=== PATIENT | female | born 1965 | race Caucasian/White ===

== ENCOUNTER 2016-10-07 12:16 | Emergency (ER) | payer OTHER ==
[~2016-10-07] VITALS: Ht 172.7 cm; Wt 86.2 kg
[2016-10-07 12:17] VITALS: BP 175/97
[2016-10-07] MEDS ORDERED: ZOLO100T PO (12:28)
[2016-10-07] MEDS ORDERED: BENA25TA9 PO (12:28)
[2016-10-07] MEDS ORDERED: LEVO25TA5 PO (12:28)
[2016-10-07] MEDS ORDERED: ALBU17IN2 INH (12:28)
[2016-10-07] MEDS ORDERED: PRED20TA PO (13:22)
[2016-10-07] MEDS ORDERED: ZITHTAB PO (13:22)
== END 2016-10-07 13:34 | disposition home or self-care (01) ==
LOC: M ED 13:20
DX: J44.0 Chronic obstructive pulmonary disease with (acute) lower respiratory infection (principal); Z87.891 Personal history of nicotine dependence; Z79.899 Other long term (current) drug therapy; J30.9 Allergic rhinitis, unspecified; E03.9 Hypothyroidism, unspecified; F32.9 Major depressive disorder, single episode, unspecified

== ENCOUNTER 2018-08-23 15:18 | Emergency (ER) | payer OTHER ==
[~2018-08-23] VITALS: Ht 172.7 cm; Wt 86.4 kg
[~2018-08-23 15:18] MED LIST: ALBU17IN2 INH; BENA25TA10 PO; LEVO25TA5 PO; PRED20TA PO; ZITHTAB PO; ZOLO100T PO
[2018-08-23] MEDS ORDERED: AMLODIPINE (15:46)
[2018-08-23] MEDS ORDERED: [UNRECOGNIZED DRUG - OTHER] (15:46)
[2018-08-23] MEDS ORDERED: FISH1000 PO (15:46)
[2018-08-23] MEDS ORDERED: AMLO5TAB6 PO (15:48)
[2018-08-23] MEDS ORDERED: CHLO125TA PO (15:48)
[2018-08-23] MEDS ORDERED: NS 1,000 ML IV ONE (16:15)
[2018-08-23] MEDS ORDERED: METOCLOPRAMIDE INJ 10MG/2ML VIAL (J2765) IV ONE (16:15)
[2018-08-23] MEDS ORDERED: KETOROLAC 30 MG/ML VIAL (J1885) IV ONE (16:15)
--- NOTE | 2018-08-23 16:43 | REP ---
Chest two views HISTORY: Chest pain Comparison: 07/11/2011 The lungs are clear. The heart is normal in size. The pulmonary vasculature is normal in appearance. The bony structure is intact. IMPRESSION: No acute disease. Electronically Signed by Estuardo Meza MD 08/23/2018 04:35 P
--- NOTE | 2018-08-23 16:47 | REP ---
CT Head without contrast HISTORY: Syncope COMPARISON: None There is no intraparenchymal hemorrhage, acute infarct or midline shift. The ventricular system is normal in appearance. There is no extra cerebral collection. A small slightly hyperdense meningioma 1.3 cm in width is present overlying the anterior right frontal lobe convexity. This abuts the adjacent right frontal lobe cortex. There is no fracture. The visualized sinuses are clear. IMPRESSION: 1. There is no acute intracranial lesion. 2. There is a small 1.3 centimeter meningioma overlying the anterior right frontal lobe convexity . Contrast enhanced CT may be helpful for further evaluation. Electronically Signed by Estuardo Meza MD 08/23/2018 04:39 P
[2018-08-23 17:51] LABS: BASO # 0.1 10^3/uL (0.0-0.2); BASO % 0.7 % (0.0-1.0); EOS # 0.3 10^3/uL (0.0-0.50); EOS % 3.6 % (0.0-3.0); HEMATOCRIT 42.9 % (36.0-47.0); HEMOGLOBIN 14.6 g/dl (12.0-15.5); LYMPH # 2.5 10^3/uL (1.5-4.5); LYMPH % 34.1 % (24.0-44.0); MEAN CORPUSCULAR HEMOGLOBIN 29.8 pg (27.0-33.0); MEAN CORPUSCULAR VOLUME 87.6 fl (80.0-96.0); MONO # 0.5 10^3/uL (0.0-0.8); MONO % 6.8 % (0.0-5.0); NEUTROPHILS # 4.1 10^3/uL (1.8-7.7); NEUTROPHILS % 54.5 % (36.0-66.0); PLATELET COUNT, AUTOMATED 243 10^3/uL (150-450); WHITE BLOOD COUNT 7.5 10^3/uL (4.0-10.0)
[2018-08-23 18:35] LABS: ALBUMIN 3.9 GM/DL (3.2-5.2); ALT/SGPT 26 U/L (12-78); BILIRUBIN,DIRECT < 0.1 MG/DL (0.0-0.2); BILIRUBIN,TOTAL 0.6 MG/DL (0.2-1.0); BLOOD UREA NITROGEN 13 MG/DL (7-18); C REACTIVE PROTEIN QUANTITATIV < 0.30 MG/DL (0.00-0.30); CALCIUM LEVEL 9.1 MG/DL (8.5-10.1); CARBON DIOXIDE LEVEL 27 MEQ/L (21-32); CHLORIDE LEVEL 102 MEQ/L (98-107); CK-MB VALUE MASS < 1.0 NG/ML (<3.6); CPK CREATINE PHOSPHOKINASE 127 U/L (26-192); CREATININE FOR GFR 0.69 MG/DL (0.55-1.30); GLOMERULAR FILTRATION RATE > 60.0 (>51); GLUCOSE, FASTING 89 MG/DL (70-100); LIPASE 103 U/L (73-393); MB/CK RELATIVE INDEX 0.79 (< OR =4); NT-PRO BNP 33 PG/ML (<125); SODIUM LEVEL 137 MEQ/L (136-145); TROPONIN I < 0.02 NG/ML (< 0.10)
[2018-08-23 19:01] LABS: ERYTHROCYTE SEDIMENTATION RATE 18 mm/hr (0-30)
[2018-08-23 19:07] LABS: INR 1.01; PROTHROMBIN TIME 13.4 SECONDS (12.1-14.4)
[2018-08-23 19:08] LABS: PARTIAL THROMBOPLASTIN TIME 28.6 SECONDS (25.4-37.6)
[2018-08-23 19:10] LABS: D-DIMER QUANT 723.84 ng/ml (<500)
[2018-08-23] MEDS ORDERED: ISOVUE-370 76% 100ML VIAL (Q9967) As Ordered ONE (20:04)
--- NOTE | 2018-08-23 21:07 | REPVR ---
EXAM: CT Angiography Chest With Contrast EXAM DATE/TIME: 08/23/2018 8:13 PM CLINICAL HISTORY: 52 years old, female; Pain; Chest pain; Additional info: Sob/chest pain TECHNIQUE: Axial computed tomographic angiography images of the chest with intravenous contrast using CT angiography protocol. All CT scans at this facility use at least one of these dose optimization techniques: automated exposure control; mA and/or kV adjustment per patient size (includes targeted exams where dose is matched to clinical indication); or iterative reconstruction. Coronal and sagittal reformatted images were created and reviewed. MIP reconstructed images were created and reviewed. CONTRAST: Contrast Material: 75 ml of ISOVUE 370; Contrast Route: IV COMPARISON: CR Chest, 2 view PA, Lat 08/23/2018 4:20 PM FINDINGS: Pulmonary arteries: There is opacification of the pulmonary arteries with no evidence of pulmonary embolus. Aorta: There is opacification of the aorta which appears intact. Lungs: The lungs appear clear. Pleural space: There is no evidence of pleural effusion. There is no evidence of pneumothorax. Heart: The heart is top normal in size. Lymph nodes: Unremarkable. No enlarged lymph nodes. Bones/joints: Unremarkable. No acute fracture. Soft tissues: Unremarkable. IMPRESSION: No evidence of pulmonary embolus. Electronically signed by: Vickey Garsia On 08/23/2018 21:06:49 PM
[2018-08-23] MEDS ORDERED: LISI10TA4 PO (22:02)
[2018-08-23 22:09] VITALS: BP 136/78
--- NOTE | 2018-08-24 08:00 | ECGEPIP ---
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
--- NOTE | 2018-08-28 20:48 | ED PDOC ---
Post-Departure Follow-Up dr baires faxed formal report of ct head for fu Claudy Luu MD Aug 28, 2018 20:48
== END 2018-08-23 22:22 | disposition home or self-care (01) ==
LOC: M ED 15:18
DX: I10 Essential (primary) hypertension (principal); D32.0 Benign neoplasm of cerebral meninges; R06.02 Shortness of breath; J44.9 Chronic obstructive pulmonary disease, unspecified; E03.9 Hypothyroidism, unspecified; F33.9 Major depressive disorder, recurrent, unspecified; Z78.0 Asymptomatic menopausal state; Z79.899 Other long term (current) drug therapy; Z79.890 Hormone replacement therapy
CPT/HCPCS: 36415; 70450; 71046; 71275; 80048; 80076; 81001; 82550; 82553; 83690; 83735; 83880; 84439; 84443; 84484; 85025; 85379; 85610; 85652; 85730; 86140; 87086; 93005; 96374; 96375; 99284; J1885; J2765; Q9967

== ENCOUNTER → 2019-02-22 | Outpatient (CLI) | payer OTHER ==
[~2019-02-22] MED LIST changes: +AMLO5TAB6 PO; +AMLODIPINE; +CHLO125TA PO; +FISH1000 PO; +LISI10TA4 PO; +PROHANCE 279.3MG/ML 15ML VIAL (A9576) As Ordered ONE; +PROHANCE 279.3MG/ML 5ML VIAL (A9576) As Ordered ONE; +[UNRECOGNIZED DRUG - OTHER]
--- NOTE | 2019-02-22 16:52 | REPVR ---
EXAM: MR Head Without and With Contrast EXAM DATE/TIME: 02/22/2019 4:14 PM CLINICAL HISTORY: 53 years old, female; Condition or disease; Prior surgery; Surgery date: 6+ months; Surgery type: Prior tumor that was resected over 2 years prior. Annual f/u; Additional info: D32.9-benign neoplasm of meninges, unspecified TECHNIQUE: Imaging protocol: MR of the head without and with intravenous contrast. Contrast material: PROHANCE; Contrast volume: 16 ml; Contrast route: 22G ANGIO; COMPARISON: CT Head without contrast 08/23/2018 4:14 PM FINDINGS: The patient is status post resection of right frontal convexity meningioma. There is an approximate 2 cm diameter right frontal convexity craniotomy defect. Mild dural enhancement at the craniotomy site is likely postoperative. No focal mass or mass effect is present. No other abnormal dural enhancement is identified. No abnormal intra-axial or extra-axial fluid collections are present. The CSF spaces and brain parenchyma signal is normal. The brainstem, other midline structures and craniocervical junction are unremarkable. There are normal signal flow void within the internal carotid and basilar arteries. The paranasal sinuses and mastoid air cells are unremarkable. The orbits have normal appearances. IMPRESSION: 1. Status post resection of right frontal convexity meningioma. 2. Mild dural enhancement at the craniotomy site is likely postoperative. No recurrent mass is identified. Continued imaging surveillance is recommended. Electronically signed by: Carlin Meyer On 02/22/2019 16:52:05 PM
== END ==
LOC: M RAD 14:41
PROVIDERS: ATTEND Neurological Surgery
DX: D32.9 Benign neoplasm of meninges, unspecified (principal); Z86.011 Personal history of benign neoplasm of the brain
CPT/HCPCS: 70553; A9576

== ENCOUNTER → 2019-09-04 | Outpatient (CLI) | payer OTHER ==
[~2019-09-04] MED LIST changes: -PROHANCE 279.3MG/ML 15ML VIAL (A9576) As Ordered ONE; -PROHANCE 279.3MG/ML 5ML VIAL (A9576) As Ordered ONE
--- NOTE | 2019-09-04 14:57 | REPMRS ---
Patient History The patient states she has not had a clinical breast exam in over a year. Patient had first child at age 34. Digital Woman Screen Mammo: September 04, 2019 - Exam #: [id number] Bilateral CC and MLO view(s) were taken. Technologist: Bita Arenas, Technologist Prior study comparison: September 10, 2018, bilateral digital woman screen mammo, performed at [facility]. August 18, 2017, bilateral digital woman screen mammo, performed at [facility]. FINDINGS: There are scattered fibroglandular densities. There has been no change in the appearance of the mammogram from the prior studies. There is a mild amount of scattered fibroglandular density which is fairly symmetric. There is no interval development of dominant mass, architectural distortion, or grouped microcalcification suggestive of malignancy. 3-D tomosynthesis shows no additional findings. Assessment: BI-RADS/ACR category 1 mammogram. Negative Mammogram. Recommendation Routine screening mammogram of both breasts in 1 year (for women over age 40). This patient's Lifetime Breast Cancer Risk is estimated at 10.5 %. This mammogram was interpreted with the aid of an FDA-approved computer-aided dectection system. Electronically Signed By: Varghese Mills MD 09/04/19 [id number]
== END ==
LOC: M WHC 10:58
PROVIDERS: ATTEND Family Medicine
DX: Z12.31 Encounter for screening mammogram for malignant neoplasm of breast (principal)

== ENCOUNTER → 2020-09-26 | Outpatient (CLI) | payer OTHER ==
[~2020-09-26] MED LIST changes: +AMLO1TAB24 PO; -AMLO5TAB6 PO; +LISI10TA22 PO; -LISI10TA4 PO
--- NOTE | 2020-09-26 16:39 | REPMRS ---
Patient History The patient states she has not had a clinical breast exam in over a year. Patient had first child at age 34. No Hormone Replacement Therapy Digital Woman Screen Mammo: September 26, 2020 - Exam #: [id number] Bilateral CC and MLO view(s) were taken. Technologist: Melissa Spencer, Technologist Prior study comparison: September 04, 2019, bilateral digital woman screen mammo performed at [facility]. September 10, 2018, bilateral digital woman screen mammo, performed at [facility]. August 18, 2017, bilateral digital woman screen mammo, performed at [facility]. FINDINGS: There are scattered fibroglandular densities. The Volpara volumetric breast density category is:B. There has been no change in the appearance of the mammogram from the prior studies. There is a mild amount of scattered fibroglandular density which is fairly symmetric. There is no interval development of dominant mass, architectural distortion, or grouped microcalcification suggestive of malignancy. 3-D tomosynthesis shows no additional findings. Assessment: BI-RADS/ACR category 1 mammogram. Negative Mammogram. Recommendation Routine screening mammogram of both breasts in 1 year (for women over age 40). This patient's [facility] Lifetime Breast Cancer Risk is estimated at 10.3 %. This mammogram was interpreted with the aid of an FDA-approved computer-aided dectection system. Electronically Signed By: Varghese Mills MD 09/26/20 [id number]
== END ==
LOC: M WHC 15:24
PROVIDERS: ATTEND Physician Assistant Medical
DX: Z12.31 Encounter for screening mammogram for malignant neoplasm of breast (principal)

== ENCOUNTER 2020-10-11 15:34 | Inpatient (IN) | payer OTHER ==
[~2020-10-11] VITALS: Ht 172.7 cm; Wt 75.8 kg
[2020-10-11] MEDS ORDERED: ASPIRIN 81 MG CHEW TABLET PO ONE (16:00)
[2020-10-11] MEDS: METOPROLOL 5 MG/5 ML VIAL IV SCH ×3 (16:15→16:33)
--- NOTE | 2020-10-11 16:15 | REP ---
INDICATION: CHEST PAIN. COMPARISON: 08/23/2018. TECHNIQUE: SINGLE PORTABLE AP VIEW OF THE CHEST WAS PERFORMED. FINDINGS: THERE IS NO ACUTE INFILTRATE OR PULMONARY EDEMA. LUNGS ARE CLEAR. HEART IS NOT SIGNIFICANTLY ENLARGED. MEDIASTINAL SILHOUETTE IS UNREMARKABLE. THE VISUALIZED OSSEOUS STRUCTURES ARE INTACT. IMPRESSION: NO ACUTE PULMONARY DISEASE. <Electronically signed by Constantin Turner > 10/11/20 [id number]
[2020-10-11 16:22] LABS: BASO # 0.1 10^3/uL (0.0-0.2); BASO % 0.5 % (0.0-1.0); EOS # 0.3 10^3/uL (0.0-0.5); EOS % 2.9 % (0.0-3.0); HEMATOCRIT 41.3 % (36.0-47.0); HEMOGLOBIN 14.2 g/dl (12.0-15.5); LYMPH # 2.4 10^3/uL (1.5-5.0); LYMPH % 26.1 % (24.0-44.0); MEAN CORPUSCULAR HEMOGLOBIN 30.2 pg (27.0-33.0); MEAN CORPUSCULAR HGB CONC 34.4 g/dl (32.0-36.5); MEAN CORPUSCULAR VOLUME 87.9 fl (80.0-96.0); MONO # 0.6 10^3/uL (0.0-0.8); MONO % 6.3 % (2.0-8.0); NEUTROPHILS # 5.9 10^3/uL (1.5-8.5); NEUTROPHILS % 64.1 % (36.0-66.0); PLATELET COUNT, AUTOMATED 234 10^3/uL (150-450); WHITE BLOOD COUNT 9.3 10^3/uL (4.0-10.0)
[2020-10-11 16:32] LABS: INR 0.91; PROTHROMBIN TIME 12.5 SECONDS (12.5-14.3)
[2020-10-11 16:58] LABS: ALBUMIN 4.2 GM/DL (3.2-5.2); ALT/SGPT 72 U/L (12-78); BILIRUBIN,DIRECT < 0.1 MG/DL (0.0-0.2); BILIRUBIN,TOTAL 0.4 MG/DL (0.2-1.0); BLOOD UREA NITROGEN 13 MG/DL (7-18); CALCIUM LEVEL 9.4 MG/DL (8.5-10.1); CARBON DIOXIDE LEVEL 30 MEQ/L (21-32); CHLORIDE LEVEL 107 MEQ/L (98-107); CK-MB VALUE MASS 3.7 NG/ML (<3.6); CPK CREATINE PHOSPHOKINASE 112 U/L (26-192); CREATININE FOR GFR 0.78 MG/DL (0.55-1.30); GLOMERULAR FILTRATION RATE > 60.0 (>51); GLUCOSE, FASTING 141 MG/DL (70-100); LIPASE 170 U/L (73-393); MAGNESIUM LEVEL 2.1 MG/DL (1.8-2.4); PHOSPHORUS LEVEL 2.4 MG/DL (2.5-4.9); POTASSIUM SERUM 3.2 MEQ/L (3.5-5.1); SODIUM LEVEL 141 MEQ/L (136-145); TOTAL PROTEIN 7.6 GM/DL (6.4-8.2); TROPONIN I < 0.02 NG/ML (< 0.10)
[2020-10-11] MEDS ORDERED: POTASSIUM CHLORIDE 10 MEQ SR TABLET PO ONE (17:10)
[2020-10-11] MEDS ORDERED: AMLO1TAB25 PO (17:24)
[2020-10-11] MEDS ORDERED: LISI10TA15 PO (17:24)
[2020-10-11] MEDS ORDERED: SYNT75TA PO (17:24)
[2020-10-11] MEDS ORDERED: BUSP10TA PO (17:24)
[2020-10-11] MEDS ORDERED: PROAAER10 INH (17:24)
[2020-10-11] MEDS ORDERED: ALBUTEROL 90 MCG/ACT 8GM HFA INHALER INH PRN (18:00)
--- NOTE | 2020-10-11 18:50 | HPEPDOC ---
General Date of Admission Oct 11, 2020 at 15:35 Date of Service: Oct 11, 2020 Chief Complaint The patient is a 55-year-old female admitted with a reason for visit of Atrial Fibrillation W Rvr Chest Pain. Source: Patient History of Present Illness Mrs. Mcqueen is a 55 year old female with hypertension, family history of early MD in parent, and history of meningioma s/p resection in 2019 who presents with chest discomfort and palpitations. Today, she was working in the garden and had came in at 12:15PM to eat and rest. After finishing eating, around 1:30PM, she developed substernal dull chest pain lasting about 30mins. It was 6/10 and nothing made it better or worsen. Denies any worsening with activity or breathing. She had some associated dyspnea, but denies nausea. No radiation, but had a strange sensation down left arm. Her father had his first MD when he was 47 yo. Patient called EMS to bring to the hospital. In the ED, she was given full dose aspirin. EKG demonstrated atrial fibrillation with RVR which responded to Lopressor 5mg IV x2. Initial troponin was negative. Work up only significant for a potassium of 3.2. I discussed anticoagulation with patient and she was agreeable. I touched base with Neurology, Dr. Monk about anticoagulation with history of brain surgery and meningioma. As long as there is no bleeding, it is okay. Patient denies history of brain bleed. Patient will be place in observation for new onset atrial fibrillation with RVR and chest pain r/o ACS Home Medications Scheduled Amlodipine Besylate (Amlodipine Besylate) 10 Mg Tablet, 5 MG PO DAILY, (Reported) Buspirone HCl (Buspirone HCl) 10 Mg Tablet, 10 MG PO BID, (Reported) Levothyroxine Sodium (Synthroid) 75 Mcg Tablet, 75 MCG PO DAILY, (Reported) Lisinopril/Hydrochlorothiazide (Lisinopril-Hctz 10-12.5 mg Tab) 1 Each Tablet, 1 TAB PO DAILY, (Reported) [place]-3 Fatty Acids/Fish Oil (Fish Oil 1,000 mg Capsule) 1,000 Mg Cap, 1 CAP PO BID, (Reported) Sertraline Hcl (Zoloft) 100 Mg Tab, 200 MG PO DAILY, (Reported) Scheduled PRN Albuterol Sulfate (Proair Hfa) 8.5 Gm Hfa.aer.ad, 2 PUFF INH Q4H PRN for SOB/WHEEZING, (Reported) Allergies Coded Allergies: No Known Drug Allergies (Unverified Allergy, Unknown, 10/11/20) Past Medical History Medical History 1. Hypertension 2. Asthma 3. Hypothyroidism Surgical History 1. Brain surgery for removal of meningioma Family History Father: History of early MD at the age of 47 yo Mother: Healthy per patient. No known medical history and not on any medications Social History * Smoker: former Smoker (quit in 2004, < 20 years on and off) Alcohol: occationally (2 to 3 times a week) Drugs: denies A-FIB/CHADSVASC A-FIB History Current/History of A-Fib/PAF?: Yes Current PO Anticoag Therapy: Yes Review of Systems Constitutional: Denies: Chills, Fever Eyes: Reports: Vision change (Gradual worsening of vision) ENT: Denies: Sore Throat Skin: Denies: Rash Pulmonary: Reports: Dyspnea; Denies: Cough Cardiovascular: Reports: Chest Pain, Palpitations Gastrointestinal: Denies: Nausea, Abdominal Pain Genitourinary: Denies: Dysuria Hematologic: Reports: Bruising Neurological: Reports: Other Symptoms (Strange sensation down left arm) Psych: Reports: Anxiety Physical Examination General Exam: Positive: Alert, Cooperative Eye Exam: Positive: EOMI; Negative: Sclera icteric ENT Exam: Positive: Atraumatic Neck Exam: Positive: Supple Chest Exam: Positive: Clear to auscultation; Negative: Rales, Rhonchi, Wheezing Heart Exam: Positive: Tachycardic, Irregular Rhythm Telemetry: Positive: Atrial fibrillation Abdomen Exam: Positive: Normal bowel sounds, Soft; Negative: Tenderness Extremity Exam: Negative: Edema Neuro Exam: Positive: Normal Speech, Cranial Nerves 3-12 NL Psych Exam: Positive: Mental status NL, Anxiety Vital Signs Vital Signs Date Time Temp Pulse Resp B/P (MAP) Pulse Ox O2 Delivery O2 Flow Rate FiO2 10/11/20 16:50 84 16 144/74 (97) 98 Room Air 10/11/20 15:43 97.2 Laboratory Data Labs 24H Laboratory Tests 2 10/11/20 16:02: Immature Granulocyte % (Auto) 0.1, Neutrophils (%) (Auto) 64.1, Lymphocytes (%) (Auto) 26.1, Monocytes (%) (Auto) 6.3, Eosinophils (%) (Auto) 2.9, Basophils (%) (Auto) 0.5, Neutrophils # (Auto) 5.9, Lymphocytes # (Auto) 2.4, Monocytes # (Auto) 0.6, Eosinophils # (Auto) 0.3, Basophils # (Auto) 0.1, Nucleated Red Blood Cells % (auto) 0.0, Prothrombin Time 12.5, Prothromb Time International Ratio 0.91, Activated Partial Thromboplast Time 26.0, Anion Gap 4L, Glomerular Filtration Rate > 60.0, Calcium Level 9.4, Phosphorus Level 2.4L, Magnesium Level 2.1, Total Bilirubin 0.4, Direct Bilirubin < 0.1, Aspartate Amino Transf (AST/SGOT) 43H, Alanine Aminotransferase (ALT/SGPT) 72, Alkaline Phosphatase 122H, Total Creatine Kinase 112, Creatine Kinase MB 3.7H, Creatine Kinase MB Relative Index 3.30, Troponin I < 0.02, Total Protein 7.6, Albumin 4.2, Albumin/Globulin Ratio 1.2, Lipase 170, Thyroid Stimulating Hormone (TSH) 3.000, Free Thyroxine 1.10 CBC/BMP Laboratory Tests 10/11/20 16:02 Assessment/Plan Mrs. Mcqueen is a 55 year old female with hypertension, family history of early MD in parent, and history of meningioma s/p resection in 2019 who presents with chest discomfort and palpitations. Patient will be monitored overnight on tele and 2nd troponin will be ordered. Patient will be started on Lopressor and apixaban for her new onset atrial fibrillation with RVR. She will need an ec hocardiogram before discharge Plan / VTE VTE Prophylaxis Ordered?: Yes Plan Plan 1. Chest pain r/o ACS -Risk factors include hypertension, smoking, and early family history of CAD -Received full dose aspirin in ED -No ST changes on EKG -Monitor on telemetry and obtain 2nd troponin 2. New onset atrial fibrillation with RVR -Responded to Lopressor 5mg IV x2 -Start Lopressor 25mg BID -Start apixaban -Monitor electrolytes and telemetry -Echocardiogram ordered 3. Hypertension -Continue HCTZ, Lisinopril, amlodipine -Monitor BP as starting new medication (Lopressor) 4. Anxiety -Continue sertraline and Buspirone 5. Hypothyroidism -Continue Levothyroxine 6. DVT ppx -Apixaban ASAD RHOADES DO Oct 11, 2020 18:50
[2020-10-11 18:58] LABS: RSV AMPLIFICATION NEGATIVE (NEGATIVE)
[2020-10-11] MEDS ORDERED: MORPHINE 2 MG/ML 1ML VIAL (J2270) IV ONE (19:25)
[2020-10-11 20:00] VITALS: BP 126/83
[2020-10-11] MEDS: METOPROLOL TART 25 MG TABLET PO SCH (21:00)
[2020-10-11] MEDS: APIXABAN 5 MG TAB (ELIQUIS) PO SCH (22:42)
[2020-10-11] MEDS: busPIRone 10 MG TAB PO SCH (22:43)
[2020-10-12] VITALS: BP 96/64
[2020-10-12 04:00] VITALS: BP 94/53
[2020-10-12] MEDS: LEVOTHYROXINE 75MCG TABLET (0.075MG) PO SCH (05:29)
[2020-10-12 06:38] LABS: HEMATOCRIT 39.2 % (36.0-47.0); MEAN CORPUSCULAR HEMOGLOBIN 29.3 pg (27.0-33.0); MEAN CORPUSCULAR HGB CONC 33.2 g/dl (32.0-36.5); MEAN CORPUSCULAR VOLUME 88.3 fl (80.0-96.0); PLATELET COUNT, AUTOMATED 230 10^3/uL (150-450); RED BLOOD COUNT 4.44 10^6/uL (4.00-5.40); WHITE BLOOD COUNT 7.1 10^3/uL (4.0-10.0)
[2020-10-12 07:00] LABS: BLOOD UREA NITROGEN 10 MG/DL (7-18); CALCIUM LEVEL 8.8 MG/DL (8.5-10.1); CARBON DIOXIDE LEVEL 28 MEQ/L (21-32); CHLORIDE LEVEL 105 MEQ/L (98-107); CHOLESTEROL LEVEL 242 MG/DL (<200); CHOLESTEROL RISK RATIO 4.245 (<5); CREATININE FOR GFR 0.74 MG/DL (0.55-1.30); GLOMERULAR FILTRATION RATE > 60.0 (>51); GLUCOSE, FASTING 100 MG/DL (70-100); HDL CHOLESTEROL 57 MG/DL (>40); LDL CHOLESTEROL 161 MG/DL (<100); NON-HDL-C 185 MG/DL; POTASSIUM SERUM 3.6 MEQ/L (3.5-5.1); SODIUM LEVEL 137 MEQ/L (136-145); TRIGLYCERIDES LEVEL 120 MG/DL (<150)
[2020-10-12 07:06] LABS: HEMOGLOBIN A1c 5.5 %
[2020-10-12] MEDS ORDERED: POTASSIUM CHLORIDE 10 MEQ SR TABLET PO ONE (07:50)
[2020-10-12 08:00] VITALS: BP 109/69
[2020-10-12] MEDS: NITROGLYCERIN 0.3 MG SUBL TAB SL PRN ×2 (08:25→08:38)
[2020-10-12] MEDS: SERTRALINE 100 MG TAB PO SCH (09:00)
[2020-10-12] MEDS ORDERED: amLODIPine 5 MG TAB PO SCH (09:00)
[2020-10-12] MEDS: METOPROLOL TART 25 MG TABLET PO SCH ×2 (09:00→21:00)
[2020-10-12] MEDS ORDERED: hydroCHLOROthiazide 12.5 MG CAPSULE PO SCH (09:00)
[2020-10-12] MEDS: APIXABAN 5 MG TAB (ELIQUIS) PO SCH ×2 (09:00→20:29)
[2020-10-12] MEDS: busPIRone 10 MG TAB PO SCH ×2 (09:00→20:29)
--- NOTE | 2020-10-12 11:46 | ECGEPIP ---
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 Heart rate is now slower Electronically Signed on 10-12-2020 11:46:26 EDT by Gabe Ceballos
[2020-10-12 12:00] VITALS: BP 116/63
--- NOTE | 2020-10-12 15:51 | ECGEPIP ---
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
[2020-10-12 16:00] VITALS: BP 119/67
--- NOTE | 2020-10-12 19:18 | IPNPDOC ---
Subjective Date Seen The patient was seen on 10/12/20. Subjective Chief Complaint/HPI Mrs. Mcqueen is a 55 year old female with hypertension, family history of early UT in parent, and history of meningioma s/p resection in 2019 who presents with chest discomfort and palpitations. Early this morning, patient had another episode of chest pressure that was dull and occur after she woke up. She had associated dyspnea. She took 2 sublingual nitroglycerin and pain resolved. Otherwise, later in the afternoon, she converted back to sinus rhythm. Objective Physical Examination General Exam: Positive: Alert, Cooperative Eye Exam: Positive: EOMI; Negative: Sclera icteric ENT Exam: Positive: Atraumatic Neck Exam: Positive: Supple Chest Exam: Positive: Clear to auscultation; Negative: Rales, Rhonchi, Wheezing Heart Exam: Positive: Tachycardic, Irregular Rhythm Telemetry: Positive: Atrial fibrillation Abdomen Exam: Positive: Normal bowel sounds, Soft; Negative: Tenderness Extremity Exam: Negative: Edema Neuro Exam: Positive: Normal Speech, Cranial Nerves 3-12 NL Psych Exam: Positive: Mental status NL, Anxiety Assessment /Plan Assessment Mrs. Mcqueen is a 55 year old female with hypertension, family history of early UT in parent, and history of meningioma s/p resection in 2019 who presents with chest discomfort and palpitations. She had another episode of substernal dull chest pain with associated dyspnea. Ordered for repeat troponin and EKG. She does have significant cardiac risk factors including early UT in father, hypertension, and hyperlipidemia. Plan/VTE VTE Prophylaxis Ordered?: Yes Plan 1. Chest pain r/o ACS -Risk factors include hypertension, smoking, and early family history of CAD -Received full dose aspirin in ED -No ST changes on EKG -Monitor on telemetry 2. New onset atrial fibrillation with RVR -Responded to Lopressor 5mg IV x2 -Start Lopressor 25mg BID -Start apixaban -Monitor electrolytes and telemetry -Echocardiogram ordered 3. Hypertension -Continue HCTZ, Lisinopril, amlodipine -Monitor BP as starting new medication (Lopressor) -Decrease lisinopril due to hypotension 4. Anxiety -Continue sertraline and Buspirone 5. Hypothyroidism -Continue Levothyroxine 6. DVT ppx -Apixaban Disposition: possible discharge tomorrow VS, I&O, 24H, Fishbone Vital Signs/I&O Vital Signs Date Time Temp Pulse Resp B/P (MAP) Pulse Ox O2 Delivery O2 Flow Rate FiO2 10/12/20 16:00 97.8 81 16 119/67 (84) 96 Room Air I&O- Last 24 Hours up to 6 AM 10/12/20 06:00 Intake Total 760 ml Output Total 960 ml Balance -200 ml Laboratory Data 24H LABS Laboratory Tests 2 10/11/20 21:56: Troponin I < 0.02 10/12/20 05:55: Nucleated Red Blood Cells % (auto) 0.0, Anion Gap 4L, Glomerular Filtration Rate > 60.0, Estimated Mean Plasma Glucose 111H, Hemoglobin A1c 5.5, Calcium Level 8.8, Triglycerides Level 120, Total Cholesterol 242H, LDL Cholesterol 161H, Non- HDL Cholesterol (LDL + VLDL) 185, Total HDL Cholesterol 57, Cholesterol/HDL Ratio 4.245 10/12/20 08:32: Troponin I < 0.02 10/12/20 13:52: Troponin I < 0.02 CBC/BMP Laboratory Tests 10/12/20 05:55 ASAD RHOADES DO Oct 12, 2020 19:18
[2020-10-12 20:00] VITALS: BP 100/51
[2020-10-13] VITALS: BP 102/54
[2020-10-13 04:00] VITALS: BP 106/59
[2020-10-13] MEDS: LEVOTHYROXINE 75MCG TABLET (0.075MG) PO SCH (05:25)
[2020-10-13 05:51] LABS: HEMATOCRIT 38.5 % (36.0-47.0); HEMOGLOBIN 12.6 g/dl (12.0-15.5); MEAN CORPUSCULAR HEMOGLOBIN 29.4 pg (27.0-33.0); MEAN CORPUSCULAR HGB CONC 32.7 g/dl (32.0-36.5); PLATELET COUNT, AUTOMATED 222 10^3/uL (150-450); RED BLOOD COUNT 4.28 10^6/uL (4.00-5.40); WHITE BLOOD COUNT 5.8 10^3/uL (4.0-10.0)
[2020-10-13 06:16] LABS: BLOOD UREA NITROGEN 12 MG/DL (7-18); CALCIUM LEVEL 8.6 MG/DL (8.5-10.1); CARBON DIOXIDE LEVEL 28 MEQ/L (21-32); CHLORIDE LEVEL 108 MEQ/L (98-107); CREATININE FOR GFR 0.76 MG/DL (0.55-1.30); GLOMERULAR FILTRATION RATE > 60.0 (>51); GLUCOSE, FASTING 98 MG/DL (70-100); POTASSIUM SERUM 4.2 MEQ/L (3.5-5.1); SODIUM LEVEL 141 MEQ/L (136-145)
[2020-10-13 08:03] VITALS: BP 130/76
[2020-10-13] MEDS: APIXABAN 5 MG TAB (ELIQUIS) PO SCH (09:22)
[2020-10-13] MEDS: SERTRALINE 100 MG TAB PO SCH (09:22)
[2020-10-13] MEDS: busPIRone 10 MG TAB PO SCH (09:23)
[2020-10-13 09:24] VITALS: BP 130/76
[2020-10-13] MEDS: METOPROLOL TART 25 MG TABLET PO SCH (09:24)
[2020-10-13] MEDS ORDERED: ELIQ5TAB PO (10:10)
[2020-10-13] MEDS ORDERED: METO1TAB87 PO (10:10)
[2020-10-13 11:21] VITALS: BP 137/77
--- NOTE | 2020-10-13 13:06 | ECHO ---
DATE OF PROCEDURE: 10/12/2020 Age: 55 Gender: Female REFERRING PROVIDER: Dr. Emeterio Cueva. PATIENT LOCATION: Room 3229. REASON FOR STUDY: Abnormal EKG. 2D MEASUREMENTS: IVS 1.4 cm LV 3.8 cm LVPW 1.2 cm LA 3.2 cm Aorta 3.2 cm DOPPLER MEASUREMENT Peak velocity across the aortic valve 1.1 m/s Peak velocity across the LVOT 0.83 m/s Mitral E 0.56 Mitral A 0.65 with a ratio of 0.9 2D COMMENTS: 1. Normal left ventricular size with mildly increased left ventricular wall thickness. Left ventricular systolic function is normal. Estimated to 65%. 2. Normal left atrium. Normal right atrium and right ventricle. 3. The atrial septum appeared to be normal without evidence of defect or shunt. 4. Normal aortic root. 5. No pericardial effusion seen. 6. Normal aortic valve. Mildly calcified mitral annulus with normal anterior mitral valve leaflet motion. Normal tricuspid valve and pulmonic valve. The proximal pulmonary artery branches were not well visualized. Doppler detects trace mitral regurgitation, trace tricuspid regurgitation, trace pulmonic regurgitation. The pulmonary artery systolic pressure appeared to be normal. Abnormal relaxation pattern was noted across the mitral valve leaflets as well as the mitral valve annulus consistent with features of grade 1 left ventricular diastolic dysfunction. IMPRESSION: 1. Normal global left ventricular systolic function with mild concentric left ventricular hypertrophy. There were some features of grade 1 left ventricular diastolic dysfunction manifested by abnormal relaxation. 2. Mitral annulus calcification with trace mitral regurgitation. 3. Trace tricuspid regurgitation. 4. Trace pulmonic regurgitation. [facility]
[2020-10-13 16:00] VITALS: BP 136/77
--- NOTE | 2020-10-13 22:46 | DS.PDOC ---
Discharge Summary General Date of Admission Oct 12, 2020 at 18:50 Date of Discharge Oct 13, 2020 Discharge Summary PROCEDURES PERFORMED DURING STAY: [None]. ADMITTING DIAGNOSES: 1. . DISCHARGE DIAGNOSES: 1. . COMPLICATIONS/CHIEF COMPLAINT: Atrial Fibrillation W Rvr Chest Pain. HISTORY OF PRESENT ILLNESS: . HOSPITAL COURSE: . DISCHARGE MEDICATIONS: Please see below. ALLERGIES: Please see below. PHYSICAL EXAMINATION ON DISCHARGE: VITAL SIGNS: Please see below. GENERAL: HEENT: NECK: CARDIOVASCULAR EXAMINATION: RESPIRATORY EXAMINATION: ABDOMINAL EXAMINATION: EXTREMITIES: SKIN: NEUROLOGICAL EXAMINATION: PSYCHIATRIC EXAMINATION: LABORATORY DATA: Please see below. IMAGING: PROGNOSIS: ACTIVITY: [As tolerated]. DIET: DISCHARGE PLAN: DISPOSITION: Home, Self-Care. DISCHARGE INSTRUCTIONS: 1. . ITEMS TO FOLLOWUP ON ON OUTPATIENT: 1. . DISCHARGE CONDITION: [Stable]. TIME SPENT ON DISCHARGE: Greater than minutes. Vital Signs/I&Os Vital Signs Date Time Temp Pulse Resp B/P (MAP) Pulse Ox O2 Delivery O2 Flow Rate FiO2 10/13/20 16:00 97.7 83 18 136/77 (96) 96 Room Air I&O- Last 24 Hours up to 6 AM 10/13/20 06:00 Intake Total 1680 ml Output Total 1950 ml Balance -270 ml Laboratory Data Labs 24H Laboratory Tests 2 10/13/20 05:20: Nucleated Red Blood Cells % (auto) 0.0, Anion Gap 5L, Glomerular Filtration Rate > 60.0, Calcium Level 8.6 CBC/BMP Laboratory Tests 10/13/20 05:20 Discharge Medications Scheduled Apixaban (Eliquis) 5 Mg Tablet, 5 MG PO BID Buspirone HCl (Buspirone HCl) 10 Mg Tablet, 10 MG PO BID, (Reported) Levothyroxine Sodium (Synthroid) 75 Mcg Tablet, 75 MCG PO DAILY, (Reported) Lisinopril/Hydrochlorothiazide (Lisinopril-Hctz 10-12.5 mg Tab) 1 Each Tablet, 1 TAB PO DAILY, (Reported) Metoprolol Tartrate (Metoprolol Tartrate) 25 Mg Tablet, 25 MG PO BID [place]-3 Fatty Acids/Fish Oil (Fish Oil 1,000 mg Capsule) 1,000 Mg Cap, 1 CAP PO BID, (Reported) Sertraline Hcl (Zoloft) 100 Mg Tab, 200 MG PO DAILY, (Reported) Scheduled PRN Albuterol Sulfate (Proair Hfa) 8.5 Gm Hfa.aer.ad, 2 PUFF INH Q4H PRN for SOB/WHEEZING, (Reported) Allergies Coded Allergies: No Known Drug Allergies (Unverified Allergy, Unknown, 10/11/20) ASAD RHOADES DO Oct 13, 2020 22:46
== END 2020-10-13 18:51 | disposition home or self-care (01) | DRG 310 ==
LOC: M ED 15:34 → M ED INP 15:35 → ENRESERV 20:16 → M PCU 20:26 → OBSVTOIN 10-12 18:50
PROVIDERS: ADMIT Internal Medicine; ATTEND Internal Medicine
DX: I48.91 Unspecified atrial fibrillation (principal); R07.2 Precordial pain; I10 Essential (primary) hypertension; F41.9 Anxiety disorder, unspecified; E03.9 Hypothyroidism, unspecified; J45.909 Unspecified asthma, uncomplicated; E78.5 Hyperlipidemia, unspecified; Z82.49 Family history of ischemic heart disease and other diseases of the circulatory system; Z79.899 Other long term (current) drug therapy

== ENCOUNTER → 2021-11-09 | Outpatient (CLI) | payer OTHER ==
[~2021-11-09] MED LIST changes: +AMLO1TAB25 PO; +BUSP10TA PO; +ELIQ5TAB PO; +LISI10TA24 PO; +METO1TAB87 PO; +PROAAER10 INH; +SYNT75TA PO
== END ==
LOC: M WHC 09:41
PROVIDERS: ATTEND Family Medicine
DX: Z12.31 Encounter for screening mammogram for malignant neoplasm of breast (principal)

== ENCOUNTER → 2022-12-27 | Outpatient (CLI) | payer OTHER | LOC: M WHC 13:00 | PROVIDERS: ATTEND Nurse Practitioner Family | DX: Z12.31 Encounter for screening mammogram for malignant neoplasm of breast (principal) ==